=== PATIENT | female | born 1990 | race Caucasian/White ===

== ENCOUNTER → 2019-12-29 | Outpatient (CLI) | payer OTHER ==
--- NOTE | 2019-12-29 07:37 | CT ---
EXAMINATION TYPE: CT sinus wo con DATE OF EXAM: 12/29/2019 COMPARISON: NONE HISTORY: Chronic sinusitis per order. Headaches with earache and sore throat for 1 to [address] ient[address] DLP: 603 mGycm. Automated Exposure Control for Dose Reduction was Utilized. TECHNIQUE: CT scan of the sinuses is performed without contrast, axial images are obtained, coronal r eformatted images are also reviewed. FINDINGS: Mild mucosal thickening involving inferior aspect bilateral maxillary sinuses. Remainder p aranasal sinuses are clear without suspicious opacification or air-fluid levels. The ostiomeatal comp dagoberto is patent bilaterally on coronal image 15. Nasal septum deviated to right of midline. Visualized portion of mastoid air cells show no abnormal opacification. The globes are intact bilate rally. Visualized brain parenchyma is unremarkable. IMPRESSION: Mild inferior chronic maxillary sinusitis. No acute paranasal sinusitis.
== END | disposition home or self-care (01) ==
LOC: RADCTMAIN 12-25 08:33
PROVIDERS: ATTEND Otolaryngology
DX: J32.8 Other chronic sinusitis (principal)
CPT/HCPCS: 70486

== ENCOUNTER → 2021-12-03 | Outpatient (CLI) | payer BC ==
--- NOTE | 2021-12-03 12:29 | CA ---
Exercise Stress Test Report Name: Kathleen Keen Exam Date: 12/03/2021 11:03 Exam Location: [facility] Stress Ht (in): 62 Wt (lb): 200 BSA: 1.91 Ordering Phys: Verona Yanez MD Referring Phys: Mary Geller Technologist: Binu Infante Age: 31 Gender: F : 1990 Procedure CPT: Indications: R06.09 ICD-10 Codes: Patient History: Medications: SINGULAIR,,,,,, LEXAPRO,,,,,, CONOR,,,,,, VIT D,,,,,, VIT C,,,,,, ZINC,,,,, Meds past 24 hrs: Pretest Chest Pain: STRESS TEST Michelet Protocol Exercise Duration (min:sec): 07:[address] Depressions (mm): Angina Score: Velazquez Score: Resting HR (bpm): 93 Peak HR (bpm): 170 Resting BP (mmHg): 125 / 70 Peak BP (mmHg): 198 / 43 MPHR: 188 Target HR: 160 % MPHR: 90 METS: 8.9 Total Dose: Peak Dose: Atropine: Double Product: 30196 BP Response: Stress Termination: TARGET HR REACHED/MAX EXERTION Stress Symptoms: DIFFICULTY IN BREATHING Stress Summary: ECG ANALYSIS Resting ECG: Normal sinus rhythm with normal axis and intervals, normal electrocardiogram Stress ECG: No ECG evidence of ischemia with exercise. CONCLUSIONS 1. Average exercise tolerance 2. Normal electrocardiographic response to exercise with no evidence of stress induced ischemia. Dr. Geraldine Ramos MD (Electronically Signed) Final Date: 03 December 2021 12:28
== END | disposition home or self-care (01) ==
LOC: RADNMMAIN 10:36
PROVIDERS: ATTEND Internal Medicine Critical Care Medicine
DX: R06.09 Other forms of dyspnea (principal)
CPT/HCPCS: 93017

== ENCOUNTER → 2023-07-30 | Outpatient (CLI) | payer BC ==
--- NOTE | 2023-07-31 15:15 | US ---
EXAMINATION TYPE: Ultrasound OB <= 14 week fetus DATE OF EXAM: 07/30/2023 3:27 PM COMPARISON: NONE CLINICAL INDICATION: Female, 32 years old with history of Z36.89 CONFIRM DATES AND VIABILITY; Confirm Dates EXAM PERFORMED: Transabdominal (TA) EXAM MEASUREMENTS: GESTATIONAL AGE / DATING Physician Established: Not yet established Dates by LMP: (9 weeks/2 days) EDC: 03/01/2024 Dates by First Scan: No previous this is first scan Dates by Current Scan for: (9 weeks/5 days) EDC: 02/27/2024 MATERNAL ANATOMY Uterus: 11.7 x 5.1 x 7.6 cm Right Ovary: 2.4 x 2.0 x 2.5 cm Left Ovary: 2.2 x 1.9 x 2.5 cm Post CDS / Adnexa: wnl Presence of free fluid: No GESTATION / SURVEY CRL: 2.9 cm (9 weeks/5 days) MSD: wnl Yolk Sac (normal less than 6mm): 5mm Heart Rate: 170 bpm Rhythm: Normal IUP: Viable IUP Date of LMP: 05/26/2023 Housing Case Manager notes: Single, viable IUP, dates above IMPRESSION: 1. Single live intrauterine with estimated gestational age of 9 weeks 2 days by LMP. Curren t ultrasound biometry is concordant at 9 weeks 5 days. 2. heart rate at the upper limits of normal at 170 BPM. Short interval follow-up if clinically indicated. 3. Otherwise, complete survey recommended at 18-20 weeks.
== END | disposition home or self-care (01) ==
LOC: RADUSWWP 15:04
PROVIDERS: ATTEND Obstetrics & Gynecology
DX: Z36.89 Encounter for other specified antenatal screening (principal); Z3A.09 9 weeks gestation of pregnancy
CPT/HCPCS: 76801

== ENCOUNTER 2024-01-27 22:49 | Outpatient (CLI) | payer BC ==
[2024-01-28 00:49] LABS: Amorphous Sediment,Urine Occasional /hpf; Appearance,Urine Clear (Clear); Bacteria,Urine Many /hpf; Bilirubin,Urine Negative (Negative); Blood,Urine Negative (Negative); Color,Urine Colorless; Glucose,Urine (UA) Negative (Negative); Ketones,Urine Negative (Negative); Leukocyte Esterase,Urine Large (Negative); Mucus,Urine Rare /hpf; Nitrite,Urine Negative (Negative); Protein,Urine Negative (Negative); RBC,Urine 12 /hpf (0-5); Specific Gravity,Urine 1.009 (1.001-1.035); Squamous Epithelial Cell,Urine 4 /hpf (0-4); Urobilinogen,Urine <2.0 mg/dL (<2.0); WBC,Urine 14 /hpf (0-5)
[2024-01-28 01:07] LABS: Creatinine,Urine Random 55.9 mg/dL; Protein/Creatinine Ratio,Urine 0.215
[2024-01-28 01:16] LABS: Basophils % (A) 0 %; Eosinophils # (A) 0.1 k/uL (0-0.7); Eosinophils % (A) 2 %; HCT 34.2 % (34.0-46.0); HGB 11.2 gm/dL (11.4-16.0); Hypochromasia Moderate; Lymphocytes # (A) 1.9 k/uL (1.0-4.8); Lymphocytes % (A) 22 %; MCH 25.8 pg (25.0-35.0); MCHC 32.7 g/dL (31.0-37.0); MCV 79.1 fL (80.0-100.0); Mean Platelet Volume 8.9; Monocytes # (A) 0.4 k/uL (0-1.0); Monocytes % (A) 5 %; Neutrophils # (A) 5.8 k/uL (1.3-7.7); Neutrophils % (A) 69 %; Platelet Count 267 k/uL (150-450); RBC 4.33 m/uL (3.80-5.40); WBC 8.5 k/uL (3.8-10.6)
[2024-01-28 01:28] LABS: ALT 13 U/L (4-34); AST 29 U/L (14-36); African American GFR (CKD) >90 (>60 ml/min/1.73 sqM); Blood Urea Nitrogen 11 mg/dL (7-17); LDH 280 U/L (120-246); Magnesium 1.6 mg/dL (1.6-2.3); Non-African American GFR(CKD) >90 (>60 ml/min/1.73 sqM); Uric Acid 4.3 mg/dL (3.7-7.4)
[2024-01-28 01:59] LABS: INR 0.9 (<1.2); Partial Thromboplastin Time 23.3 sec (22.0-30.0); Prothrombin Time 10.1 sec (10.0-12.5)
[2024-01-28 02:25] VITALS: BP 186/101; PULSE 86; RESP 16; TEMP 97
--- NOTE | 2024-02-07 11:16 | P.MSEPDOC ---
Presenting Problems - Arrival Data Date of Arrival on Unit: 01/28/24 Time of Arrival on Unit: 22:49 Mode of Transport: Ambulatory - Complaint OB-Reason for Admission/Chief Complaint: Decreased Movement Medical History - Information : 1 Para: 0 Term: 0 : 0 Abortions: Spontaneous or Elective: 0 Number of Living Children: 0 - Gestational Age Gestational Age by LASHAY (wks/days): 35 Weeks and 2 Days Review of Systems - Review of Systems Constitutional: No problems Breast: No problems ENT: No problems Cardiovascular: No problems Respiratory: No problems Gastrointestinal: No problems Genitourinary: No problems Musculoskeletal: No problems Neurological: No problems Skin: No problems Vital Signs - Temperature Temperature: 97 F Temperature Source: Temporal Artery Scan - Pulse Pulse Oximetery Pulse Rate: 86 Pulse Assessment Method: Pulse Oximetry - Respirations Respiratory Rate: 16 Oxygen Delivery Method: Room Air - Blood Pressure Right Arm Blood Pressure: 186/101 Blood Pressure Mean: 129 Blood Pressure Source: Automatic Cuff Medical Screen Scoring - Assessment - Baby A Baseline FHR: 130 Heart Rate - NICHD Category: Category I (Normal) NST: Reactive Physician Notification - Physician Notified Physician Notified Date: 01/27/24 Physician Notified Time: 23:23 Physician: Nydia Carrillo New Order Received: Yes - Notification Comment Comment: Spoke with Dr. Carrillo, Pt 35 and 1 weeks gestation. Presents with decreased movement. reactive NST, Cat 1 tones, and mvoement audible. Discussed initial BP 168/101 and repeat 139/101. Pt denies any symptoms of preeclampsia. Order to D/C home if next BP is less than 140/90. If above, order for preeclampsia labs and serial BP Q20min and to call back with results. Phoned back with lab results, reviewed, discussed serial BPs. Reviewed tracing. Order recieved to D/C pt home and for pt to keep appointment in office on Wednesday. Maternal Triage Index - Maternal Triage Index Presenting for scheduled procedure w/no complaint: No - Stat/Priority 1 Stat Priority 1: No - Urgent/Priority 2 Urgent Priority 2: Yes Provider Notified: Nydia Carrillo Provider Notified Time: 23:23 Criteria Met for Priority 2: Pt c/o decreased movement Disposition - Disposition OB Disposition: Discharge to home Discharge Date: 01/28/24 Discharge Time: 02:15 I agree with the RN Medical Screening Exam: Yes Case reviewed; plan agreed upon as documented in EMR&OBIX.: Yes Diagnosis: DECREASED MOVEMENTS, THIRD TRIMESTER, FETUS 1
== END 2024-01-28 02:15 | disposition home or self-care (01) ==
LOC: FBPOP 22:49
PROVIDERS: ATTEND Obstetrics & Gynecology
CPT/HCPCS: 59025; 81001; 82565; 82570; 83615; 83735; 84156; 84450; 84460; 84520; 84550; 85025; 85384; 85610; 85730; 99213

== ENCOUNTER 2024-02-16 11:57 | Inpatient (IN) | payer BC ==
[2024-02-16 13:03] LABS: Anisocytosis Slight; Basophils % (A) 0 %; Eosinophils # (A) 0.1 k/uL (0-0.7); Eosinophils % (A) 1 %; HCT 33.2 % (34.0-46.0); HGB 10.9 gm/dL (11.4-16.0); Hypochromasia Slight; Lymphocytes # (A) 1.6 k/uL (1.0-4.8); Lymphocytes % (A) 20 %; MCH 25.5 pg (25.0-35.0); MCHC 32.9 g/dL (31.0-37.0); MCV 77.6 fL (80.0-100.0); Microcytosis Slight; Monocytes # (A) 0.3 k/uL (0-1.0); Monocytes % (A) 4 %; Neutrophils # (A) 5.8 k/uL (1.3-7.7); Neutrophils % (A) 74 %; Platelet Count 223 k/uL (150-450); Poikilocytosis Slight; RBC 4.28 m/uL (3.80-5.40); RDW 16.4 % (11.5-15.5); WBC 7.8 k/uL (3.8-10.6)
[2024-02-16 13:12] LABS: INR 0.9 (<1.2); Partial Thromboplastin Time 23.5 sec (22.0-30.0); Prothrombin Time 9.7 sec (10.0-12.5)
[2024-02-16 13:13] LABS: ALT 12 U/L (4-34); AST 24 U/L (14-36); African American GFR (CKD) >90 (>60 ml/min/1.73 sqM); Blood Urea Nitrogen 8 mg/dL (7-17); LDH 249 U/L (120-246); Non-African American GFR(CKD) >90 (>60 ml/min/1.73 sqM); Uric Acid 4.8 mg/dL (3.7-7.4)
[2024-02-16 13:36] LABS: Appearance,Urine Cloudy (Clear); Bacteria,Urine Rare /hpf; Bilirubin,Urine Negative (Negative); Blood,Urine Negative (Negative); Color,Urine Yellow; Glucose,Urine (UA) Negative (Negative); Ketones,Urine Negative (Negative); Leukocyte Esterase,Urine Large (Negative); Mucus,Urine Occasional /hpf; Nitrite,Urine Negative (Negative); Protein,Urine 1+ (Negative); RBC,Urine 2 /hpf (0-5); Squamous Epithelial Cell,Urine 8 /hpf (0-4); Urobilinogen,Urine <2.0 mg/dL (<2.0); WBC,Urine 2 /hpf (0-5)
[2024-02-16 13:44] LABS: Protein/Creatinine Ratio,Urine 0.318
[2024-02-16] MEDS: LABETALOL 200 MG TAB PO STA (16:34)
[2024-02-16] MEDS: DINOPROSTONE 10 MG INSERT.ER VAGINAL ONE (17:06)
[2024-02-16] MEDS: NALBUPHINE 10 MG/ML (10 ML MDV) IV PRN (22:01)
[2024-02-16] MEDS: LACTATED RINGERS 1,000 ML IV SCH (23:15)
[2024-02-17] MEDS: OXYTOCIN 30 UNITS/500 ML NS 30 UNIT in SALINE 1 500ML.BAG IV SCH ×2 (05:59→13:24)
[2024-02-17] MEDS ORDERED: TERBUTALINE 1 MG/ML VIAL SQ PRN (06:00)
[2024-02-17] MEDS ORDERED: CARBOPROST TROMETHAMINE 250 MCG/ML 1 ML AMP IM PRN (06:00)
[2024-02-17] MEDS ORDERED: LIDOCAINE 0.5% (PF) 5 MG/ML (50 ML SDV) SQ PRN (06:00)
[2024-02-17] MEDS ORDERED: miSOPROStoL 200 MCG TAB RECTAL PRN (06:00)
[2024-02-17] MEDS ORDERED: OXYTOCIN 10 UNIT/ML 1 ML VIAL IM PRN (06:00)
[2024-02-17] MEDS ORDERED: METHYLERGONOVINE 0.2 MG/ML 1 ML AMP IM PRN (06:00)
[2024-02-17] MEDS ORDERED: miSOPROStoL 200 MCG TAB PO PRN ×2 (06:00→11:30)
[2024-02-17] MEDS ORDERED: TRANEXAMIC 1,000 MG/100ML-NACL 1,000 MG in EMPTY BAG 1 BAG IV PRN (06:00)
--- NOTE | 2024-02-17 08:15 | P.HPOB ---
History of Present Illness H&P Date: 02/16/24 Chief Complaint: mild pre-eclampsia 33 year old presents at 38 weeks 1 day with elevated BPs and a PC ratio of 0.3. Her cervix is closed and thick. heart tones category 1. Review of Systems All systems: negative Constitutional: Denies chills, Denies fever Eyes: denies blurred vision, denies pain Ears, nose, mouth and throat: Denies headache, Denies sore throat Cardiovascular: Denies chest pain, Denies shortness of breath Respiratory: Denies cough Gastrointestinal: Denies abdominal pain, Denies diarrhea, Denies nausea, Denies vomiting Genitourinary: Denies dysuria, Denies hematuria Musculoskeletal: Denies myalgias Integumentary: Denies pruritus, Denies rash Neurological: Denies numbness, Denies weakness Psychiatric: Denies anxiety, Denies depression Endocrine: Denies fatigue, Denies weight change Past Medical History Past Medical History: Asthma History of Any Multi-Drug Resistant Organisms: None Reported Past Anesthesia/Blood Transfusion Reactions: No Reported Reaction Past Psychological History: Anxiety Smoking Status: Never smoker Past Alcohol Use History: None Reported Past Drug Use History: None Reported - Past Family History Mother Family Medical History: Hypertension Medications and Allergies Home Medications Medication Instructions Recorded Confirmed Type Escitalopram [Lexapro] 10 mg PO DAILY 01/27/24 02/16/24 History Loratadine 10 mg PO DAILY 01/27/24 02/16/24 History Montelukast [Singulair] 10 mg PO DAILY 01/27/24 02/16/24 History Vit No.179/Iron/Folic 1 tab PO DAILY 01/27/24 02/16/24 History [ Tablet] Allergies Allergy/AdvReac Type Severity Reaction Status Date / Time No Known Allergies Allergy Verified 02/16/24 12:32 Exam Osteopathic Statement: *. No significant issues noted on an osteopathic structural exam other than those noted in the History and Physical/Consult. Vital Signs Temp Pulse Resp BP Pulse Ox 02/16/24 23:46 97.4 F L 84 16 133/63 96 02/16/24 20:29 96.9 F L 96 16 138/84 99 02/16/24 16:00 97.6 F 90 18 170/90 02/16/24 14:56 96.9 F L 90 18 155/80 02/16/24 13:50 97.6 F 108 H 18 147/80 98 Intake and Output 02/16/24 02/17/24 02/17/24 22:59 06:59 14:59 Intake Total 240 100 Balance 240 100 Intake: Oral 240 100 Other: # Voids 1 2 Heart: Regular rate and rhythm Lungs: Clear to auscultation bilaterally Abdomen: Soft, nontender Extremities: Negative Homans sign Results Result Diagrams: 02/16/24 12:45 02/16/24 12:45 Abnormal Lab Results - Last 24 Hours (Table) 02/16/24 02/16/24 02/16/24 Range/Units 12:20 12:45 12:45 Hgb 10.9 L (11.4-16.0) gm/dL Hct 33.2 L (34.0-46.0) % MCV 77.6 L (80.0-100.0) fL RDW 16.4 H (11.5-15.5) % PT 9.7 L (10.0-12.5) sec Fibrinogen 625 H (200-500) mg/dL Lactate Dehydrogenase (120-246) U/L Urine Appearance Cloudy H (Clear) Urine Protein 1+ H (Negative) Ur Leukocyte Esterase Large H (Negative) Ur Squamous Epith Cells 8 H (0-4) /hpf Urine Bacteria Rare H (None) /hpf Urine Mucus Occasional H (None) /hpf 02/16/24 Range/Units 12:45 Hgb (11.4-16.0) gm/dL Hct (34.0-46.0) % MCV (80.0-100.0) fL RDW (11.5-15.5) % PT (10.0-12.5) sec Fibrinogen (200-500) mg/dL Lactate Dehydrogenase 249 H (120-246) U/L Urine Appearance (Clear) Urine Protein (Negative) Ur Leukocyte Esterase (Negative) Ur Squamous Epith Cells (0-4) /hpf Urine Bacteria (None) /hpf Urine Mucus (None) /hpf Assessment and Plan (1) Pre-eclampsia Current Visit: Yes Status: Acute Code(s): O14.90 - UNSPECIFIED PRE- ECLAMPSIA, UNSPECIFIED TRIMESTER SNOMED Code(s): 184499222 (2) 38 weeks gestation of Current Visit: Yes Status: Acute Code(s): Z3A.38 - 38 WEEKS GESTATION OF SNOMED Code(s): 33742637 Plan: 1. induction of labor with cervidil first and then plan amniotomy and pitocin
[2024-02-17] MEDS ORDERED: OXYTOCIN 30 UNITS/500 ML NS BAG IV ONE (11:45)
[2024-02-17] MEDS ORDERED: MORPHINE SULFATE (PF) 0.3 MG/0.3 ML SYR ONE (11:45)
[2024-02-17] MEDS ORDERED: NALBUPHINE 10 MG/ML (10 ML MDV) ONE (11:45)
[2024-02-17] MEDS ORDERED: ONDANSETRON 4 MG/2 ML VIAL ONE (11:45)
[2024-02-17] MEDS ORDERED: KETOROLAC 15 MG/ML 1 ML VIAL ONE (11:45)
[2024-02-17] MEDS ORDERED: ePHEDrine 50 MG/ML 1 ML VIAL ONE (11:45)
[2024-02-17] MEDS ORDERED: diphenhydrAMINE 25 MG CAP PO PRN (12:37)
[2024-02-17] MEDS ORDERED: ZOLPIDEM 5 MG TAB PO PRN (12:37)
[2024-02-17] MEDS ORDERED: METOCLOPRAMIDE 5 MG/ML 2 ML VIAL IVP PRN (12:37)
[2024-02-17] MEDS ORDERED: SIMETHICONE 80 MG CHEWABLE PO PRN (12:37)
[2024-02-17] MEDS ORDERED: LANOLIN CREAM 1 GM TUBE TOPICAL PRN (12:37)
[2024-02-17] MEDS ORDERED: NALOXONE 0.4 MG/ML 1 ML VIAL IV PRN (12:37)
[2024-02-17] MEDS ORDERED: diphenhydrAMINE 50 MG/ML 1 ML VIAL IVP PRN ×2 (12:37)
[2024-02-17] MEDS ORDERED: ONDANSETRON 4 MG/2 ML VIAL IVP PRN (12:37)
[2024-02-17] MEDS ORDERED: diphenhydrAMINE 50 MG CAP PO PRN (12:37)
--- NOTE | 2024-02-17 12:44 | P.OP ---
Date of Procedure: 02/17/24 Preoperative Diagnosis: 1. at 38 weeks 1 day 2. pre-eclampsia 3. remote from delivery 4. failed induction Postoperative Diagnosis: same Procedure(s) Performed: Primary low transverse Anesthesia: spinal Surgeon: Nydia Carrillo Table Top Tile Setter #1: Aida Wise Estimated Blood Loss (ml): 853 IV fluids (ml): 900 Urine output (ml): 50 Pathology: none sent Condition: stable Disposition: floor Operative Findings: viable male, weight 8#3oz, apgars pending Description of Procedure: Patient was taken to the operating room where spinal anesthesia was found be adequate. She was prepped and draped in normal sterile fashion in dorsal supine position with a leftward tilt. Pfannenstiel skin incision was made the scalpel and carried through to the underlying layer of fascia with the scalpel. Fascia was incised in midline and carried bilaterally with the Morillo scissors. The superior aspect of the fascial incision was grasped with [place] clamps elevated and the underlying rectus muscles dissected off with the Morillo's. Attention was then turned to inferior aspect of same incision which in a similar fashion was grasped tented up and the underlying rectus muscles dissected off with the Morillo's. The rectus muscles were the midline and the peritoneum was identified tented up and entered sharply with the scalpel. The incision was extended superiorly and inferiorly with good visualization of the bladder. The bladder blade was inserted and the vesicouterine peritoneum was incised the Metzenbaums then carried bilaterally and bladder flap created digitally. A low transverse incision was then made on the uterus with the scalpel. This was carried bilaterally and digital manner. Infant's head delivered atraumatically, nose and mouth bulb suctioned, cord clamped and cut, handed off to waiting nurses. Apgars pending, weight 8 lbs. 3 oz. Placenta delivered manually, intact with three-vessel cord. The uterus is exteriorized and cleared of all clots and debris. It was not hellen well, pitocin was added to the IV. The uterine incision was closed with 0 Vicryl in a running locked fashion. Second layer of the same sutures used in imbricating fashion to obtain excellent hemostasis. The uterus was placed back into the abdomen. The fascia was reapproximated using 0 Vicryl in a running fashion. The subcutaneous tissues closed with 3-0 Vicryl running fashion. The skin was closed marychuy. Patient tolerated the procedure well, sponge and instrument counts were correct times 2 and she was taken to the recovery room in stable condition.
[2024-02-17] MEDS: CITRIC ACID-SODIUM CITRATE 15 ML CUP PO ONE (12:54)
[2024-02-17] MEDS: SENNOSIDES-DOCUSATE SODIUM 1 EACH TAB PO SCH (19:38)
[2024-02-17] MEDS: ACETAMINOPHEN TAB 500 MG TAB PO SCH (19:38)
[2024-02-17] MEDS: IBUPROFEN 600 MG TAB PO SCH (22:31)
[2024-02-17] MEDS: KETOROLAC 15 MG/ML 1 ML VIAL IVP SCH (22:32)
[2024-02-18 06:12] LABS: Anisocytosis Slight; Basophils % (A) 0 %; Eosinophils % (A) 1 %; HCT 30.2 % (34.0-46.0); HGB 9.5 gm/dL (11.4-16.0); Hypochromasia Marked; Lymphocytes # (A) 1.4 k/uL (1.0-4.8); Lymphocytes % (A) 16 %; MCH 25.2 pg (25.0-35.0); MCHC 31.6 g/dL (31.0-37.0); MCV 79.8 fL (80.0-100.0); Mean Platelet Volume 9.4; Monocytes # (A) 0.4 k/uL (0-1.0); Monocytes % (A) 4 %; Neutrophils # (A) 6.7 k/uL (1.3-7.7); Neutrophils % (A) 77 %; Platelet Count 219 k/uL (150-450); RBC 3.78 m/uL (3.80-5.40); RDW 16.4 % (11.5-15.5); WBC 8.7 k/uL (3.8-10.6)
--- NOTE | 2024-02-18 07:54 | P.PNOBGPC ---
Subjective - Subjective Principal diagnosis: S/P 1*LTCS POD #1 Interval history: Examined. Denies nausea, vomiting, chest pain, shortness of breath or calf pain. She does not have any headaches or vision changes. Her blood pressures have come down to 110 to 120s over 70s to 90. Patient reports: Reports appetite normal, Reports voiding normally, Reports pain well controlled, Reports ambulating normally Objective - Vital Signs Latest vital signs: Vital Signs Temp Pulse Resp BP Pulse Ox 02/18/24 04:00 97.8 F 95 16 124/91 98 02/18/24 00:00 97.8 F 95 16 113/76 96 02/17/24 22:28 16 95 02/17/24 21:00 16 95 02/17/24 20:00 16 96 02/17/24 19:30 98.0 F 109 H 16 119/81 98 02/17/24 18:00 100 16 95 02/17/24 14:45 86 16 135/70 02/17/24 14:30 83 16 136/71 02/17/24 14:15 96 16 136/71 95 02/17/24 14:00 96 16 136/74 95 02/17/24 13:43 100 16 136/68 02/17/24 13:30 86 16 125/71 95 02/17/24 13:13 88 16 122/58 95 02/17/24 13:00 96 16 120/63 95 02/17/24 12:45 96.6 F L 100 16 104/60 95 Intake and Output 02/17/24 02/18/24 02/18/24 22:59 06:59 14:59 Output Total 400 450 Balance -400 -450 Output: Urine 400 450 Uretheral (Blevins) 200 - Exam Lungs: bilateral: normal Chest: Normal S1, Normal S2 Extremities: Present: normal Abdomen: Present: normal appearance, soft. Absent: distention, tenderness Incision: Present: normal, dry, intact Uterus: Present: normal, firm - Labs Labs: Abnormal Lab Results - Last 24 Hours (Table) 02/18/24 Range/Units 04:28 RBC 3.78 L (3.80-5.40) m/uL Hgb 9.5 L (11.4-16.0) gm/dL Hct 30.2 L (34.0-46.0) % MCV 79.8 L (80.0-100.0) fL RDW 16.4 H (11.5-15.5) % Assessment and Plan (1) Pre-eclampsia Current Visit: Yes Status: Acute Code(s): O14.90 - UNSPECIFIED PRE- ECLAMPSIA, UNSPECIFIED TRIMESTER SNOMED Code(s): 129991605 (2) 38 weeks gestation of Current Visit: Yes Status: Resolved Code(s): Z3A.38 - 38 WEEKS GESTATION OF SNOMED Code(s): 14770867 (3) Status post primary low transverse section Current Visit: Yes Status: Acute Code(s): Z98.891 - HISTORY OF UTERINE SCAR FROM PREVIOUS SURGERY SNOMED Code(s): 529599602 Plan: 1. Continue postoperative care 2. Monitor blood pressures closely
--- NOTE | 2024-02-18 08:49 | P.PN ---
Progress Note - Text Progress Note Date: 02/18/24 Patient was seen and examined side. Received intrathecal morphine 300 mcg for postop pain control as per surgeon request. Today postop day 1 for s/p C- section. Today complaining her pain levels 1-2 out of 10 in severity. Able to ambulate without any difficulty. Denied any weakness. Mild itching. Physical exam: Vitals : stable vitals, afebrile Assessment and plan: S/p postop day 1 - Continue oral pain medications as needed as per primary care. Please contact anesthesia as needed.
[2024-02-19] MEDS: NIFEdipine XL 30 MG TAB.ER.24 PO SCH (02:27)
[2024-02-19] MEDS: NIFEdipine XL 30 MG TAB.ER.24 PO STA (10:03)
--- NOTE | 2024-02-19 12:54 | P.PNOBGPC ---
Subjective - Subjective Principal diagnosis: s/p primary section Interval history: The patient is doing well this morning and had no acute events overnight. She has no complaints this morning. She reports minimal lochia, passing flatus, voiding without difficulty, ambulating, and eating/drinking without nausea or vomiting. She is her without difficulty. She denies chest pain, shortness of breathing, fevers, or chills overnight. She denies pain or swelling in the legs. Patient reports: Reports appetite normal, Reports voiding normally, Reports pain well controlled, Reports ambulating normally [place]: doing well, other (in the nursery) Objective - Vital Signs Latest vital signs: Vital Signs Temp Pulse Resp BP Pulse Ox 02/19/24 09:35 99.9 F H 91 16 154/102 02/19/24 01:00 92 16 152/94 98 02/19/24 00:00 99.7 F H 102 H 16 163/98 98 02/18/24 16:00 98.8 F 98 16 131/86 100 Intake and Output 02/18/24 02/19/24 02/19/24 22:59 06:59 14:59 Other: # Voids 2 2 1 - Exam Extremities: Present: normal Abdomen: Present: normal appearance, soft Incision: Present: normal, intact Uterus: Present: normal, firm Assessment and Plan Assessment: 33 year old now POD#2 s/p primary section Plan: 1. Post-operative 2. Pre-eclampsia without severe features. BPs normotensive to severe range yesterday. Procardia XL 30mg given overnight. Morning BP 150s/100s. Procardia XL increased to 60mg this AM. Continue to monitor. 3. Baby girl in the nursery Dispo: Anticipate discharge home tomorrow if blood pressures stable
[2024-02-19] MEDS: LABETALOL 200 MG TAB PO SCH (16:31)
[2024-02-20] MEDS: LABETALOL 100 MG TAB PO SCH ×2 (08:36→18:38)
--- NOTE | 2024-02-20 09:32 | P.PNOBGPC ---
Subjective - Subjective Principal diagnosis: s/p primary section Interval history: The patient is doing well this morning and had no acute events overnight. She has no complaints this morning. She reports minimal lochia, passing flatus, voiding without difficulty, ambulating, and eating/drinking without nausea or vomiting. She is breast-feeding her infant without difficulty. She denies chest pain, shortness of breathing, fevers, or chills overnight. She denies pain or swelling in the legs. No headache, no visual disturbances, no RUQ pian. Patient reports: Reports appetite normal, Reports voiding normally, Reports pain well controlled, Reports ambulating normally : doing well, nursing well Objective - Vital Signs Latest vital signs: Vital Signs Temp Pulse Resp BP Pulse Ox 02/20/24 08:00 99.0 F 88 16 151/90 98 02/19/24 23:00 97.9 F 90 16 138/81 02/19/24 15:21 98.2 F 108 H 16 143/102 02/19/24 09:35 99.9 F H 91 16 154/102 - Exam Extremities: Present: normal Abdomen: Present: normal appearance, soft Incision: Present: normal, dry, intact Uterus: Present: normal, firm Assessment and Plan Assessment: 33 year old now POD#3 s/p primary section Plan: 1. Post-operative. Meeting all milestones appropriately. 2. Pre-eclampsia without severe features. BPs mild range yesterday up to 150s/100s. Patient unresponsive to Procardia. Initially started on Labetalol 200mg BID which was increased this morning to 300mg BID. Continue to monitor. No pre-eclampsia s/s. 3. Baby girl now at bedside. Dispo: Anticipate discharge home tomorrow if blood pressures stable
[2024-02-20] MEDS: FERROUS SULFATE 325 MG TAB PO SCH (15:48)
[2024-02-21] MEDS: NIFEdipine 10 MG CAP PO STA (03:50)
--- NOTE | 2024-02-21 08:22 | P.PNOBGPC ---
Subjective - Subjective Principal diagnosis: S/P 1+ LTCS POD #4 Interval history: Pt has had elevated BPs. I will change BP meds to 300mg tid and procaria 30xl. Sh eis feelinig great with no symptoms Patient reports: Reports appetite normal, Reports voiding normally, Reports pain well controlled, Reports ambulating normally [place]: doing well Objective - Vital Signs Latest vital signs: Vital Signs Temp Pulse Resp BP Pulse Ox 02/21/24 07:56 98.0 F 86 18 137/96 97 02/21/24 05:48 143/95 02/21/24 03:36 163/103 02/20/24 22:06 143/94 02/20/24 15:45 90 16 151/93 96 02/20/24 11:33 90 16 125/83 97 - Exam Lungs: bilateral: normal Chest: Normal S1, Normal S2 Extremities: Present: normal, other (3+/4 DTR), edema (minimal) Abdomen: Present: normal appearance, soft. Absent: distention, tenderness Incision: Present: normal, dry, intact Uterus: Present: normal, firm Assessment and Plan (1) Pre-eclampsia Current Visit: Yes Status: Acute Code(s): O14.90 - UNSPECIFIED PRE- ECLAMPSIA, UNSPECIFIED TRIMESTER SNOMED Code(s): 479436010 (2) 38 weeks gestation of Current Visit: Yes Status: Resolved Code(s): Z3A.38 - 38 WEEKS GESTATION OF SNOMED Code(s): 60472119 (3) Status post primary low transverse section Current Visit: Yes Status: Acute Code(s): Z98.891 - HISTORY OF UTERINE SCAR FROM PREVIOUS SURGERY SNOMED Code(s): 734917870 Plan: 1. 300mg labetalol tid 2. procarida 30mg xl
[2024-02-21] MEDS ORDERED: LABETALOL 200 MG TAB PO SCH (09:00)
[2024-02-21] MEDS: LABETALOL 200 MG TAB PO SCH (09:12)
[2024-02-21] MEDS: NIFEdipine XL 30 MG TAB.ER.24 PO SCH (09:12)
[2024-02-22 07:55] VITALS: BP 161/93; PULSE 98; RESP 16; TEMP 97.9
--- NOTE | 2024-02-22 08:00 | P.DS ---
Providers Date of admission: 02/16/24 13:55 Expected date of discharge: 02/22/24 Attending physician: Nydia Carrillo Primary care physician: Stated None - Discharge Diagnosis(es) (1) Pre-eclampsia Current Visit: Yes Status: Acute (2) 38 weeks gestation of Current Visit: Yes Status: Resolved (3) Status post primary low transverse section Current Visit: Yes Status: Acute Hospital Course: Patient presented for induction of labor due to preeclampsia. She underwent a primary low transverse due to preeclampsia remote from delivery and failed induction. Postoperatively her blood pressures did increase and she was put on labetalol and Procardia. Her blood pressures were finally controlled postoperative day #5. She is tolerating regular diet passing flatus and ambulating without difficulty. She denies any signs or symptoms of the preeclampsia. She'll be discharged home postoperative day #5 with prescriptions for labetalol and Procardia. She will monitor her blood pressures at home and call with extreme elevations or if she has any signs and symptoms of preeclampsia which were reviewed with her several times. Plan - Discharge Summary New Discharge Prescriptions: New Ibuprofen [Motrin] 600 mg PO Q6HR PRN #30 tab PRN Reason: Mild Pain (Scale 1 To 3) Acetaminophen Tab [Tylenol] 650 mg PO Q6H PRN #30 tab PRN Reason: Mild Pain (Scale 1 To 3) Labetalol [Trandate] 300 mg PO Q8H #90 tab Ferrous Sulfate [Iron (65 MG Elemental)] 325 mg PO DAILY #30 tab Ibuprofen [Motrin] 600 mg PO Q6H #30 tab NIFEdipine XL [Procardia XL] 30 mg PO DAILY #30 tab No Action Escitalopram [Lexapro] 10 mg PO DAILY Vit No.179/Iron/Folic [ Tablet] 1 tab PO DAILY Montelukast [Singulair] 10 mg PO DAILY Loratadine 10 mg PO DAILY Discharge Medication List Escitalopram [Lexapro] 10 mg PO DAILY 01/27/24 [History] Loratadine 10 mg PO DAILY 01/27/24 [History] Montelukast [Singulair] 10 mg PO DAILY 01/27/24 [History] Vit No.179/Iron/Folic [ Tablet] 1 tab PO DAILY 01/27/24 [History] Acetaminophen Tab [Tylenol] 650 mg PO Q6H PRN #30 tab 02/19/24 [Rx] Ferrous Sulfate [Iron (65 MG Elemental)] 325 mg PO DAILY #30 tab 02/19/24 [Rx] Ibuprofen [Motrin] 600 mg PO Q6HR PRN #30 tab 02/19/24 [Rx] Ibuprofen [Motrin] 600 mg PO Q6H #30 tab 02/22/24 [Rx] Labetalol [Trandate] 300 mg PO Q8H #90 tab 02/22/24 [Rx] NIFEdipine XL [Procardia XL] 30 mg PO DAILY #30 tab 02/22/24 [Rx] Follow up Appointment(s)/Referral(s): Nydia Carrillo DO [Doctor of Osteopathic Medicine] - 03/01/24 1:45 pm Activity/Diet/Wound Care/Special Instructions: Instructions 1. Do not begin any exercise program for 3 weeks. 2. Do not resume sexual relations for 6 weeks or longer if uncomfortable. 3. You may take tub baths or showers at any time. 4. You may use tampons if desired after 6 weeks. 5. Keep any areas repaired with stitches clean and dry. 6. If you are not nursing, wear a good fitting, supportive bra during the day and limit fluid intake for at least 1 week to prevent breast engorgement. 7. Call the office, , within the next week to make appointment for your 6 week checkup if it has not already been made. 8. Report any of the following occurrences to the doctor promptly: a. Heavy, excessive bleeding b. Chills, fever c. Burning or frequency of urination d. Pain or redness and breasts if nursing e. Increasing pain or swelling of vulva (stitches). In addition to the above instructions, the following additional should be followed: 1. No heavy lifting or straining (exercising) until after 6 week checkup. 2. Keep abdominal incision clean and dry: You may wear a dressing if more comfortable. 3. Make office appointment for 2 weeks after delivery date. Discharge Disposition: HOME SELF-CARE
== END 2024-02-22 11:50 | disposition home or self-care (01) | DRG 788 ==
LOC: FBPOP 11:57 → 4FBP 13:55
PROVIDERS: ADMIT Obstetrics & Gynecology; ATTEND Obstetrics & Gynecology
PROC: 3E0P7VZ Introduction of Hormone into Female Reproductive, Via Natural or Artificial Opening (ICD-10-PCS; 2024-02-16)
PROC: 10D00Z1 Extraction of Products of Conception, Low, Open Approach (ICD-10-PCS; principal; 2024-02-17 11:45)
DX: O14.04 Mild to moderate pre-eclampsia, complicating childbirth (principal); Z3A.38 38 weeks gestation of pregnancy; Z37.0 Single live birth; O99.344 Other mental disorders complicating childbirth; O61.0 Failed medical induction of labor; F41.9 Anxiety disorder, unspecified; O99.52 Diseases of the respiratory system complicating childbirth; J45.909 Unspecified asthma, uncomplicated; Z79.899 Other long term (current) drug therapy
CPT/HCPCS: 59025; 81001; 82565; 82570; 83615; 84156; 84450; 84460; 84520; 84550; 85025; 85384; 85610; 85730; 86850; 86900; 86901